=== PATIENT | female | born 1980 | race Caucasian/White ===

== ENCOUNTER 2017-02-03 00:43 | Emergency (ER) | payer MEDICAID ==
[~2017-02-03] VITALS: Ht 165.1 cm; Wt 99.5 kg
[2017-02-03 00:44] VITALS: BP 133/85
[2017-02-03] MEDS ORDERED: LIDOCAINE 1%, 20ML ONE (01:08)
[2017-02-03] MEDS ORDERED: IBUPROFEN 200 MG TABLET PO ONE (01:30)
[2017-02-03] MEDS ORDERED: OXYcodone/APAP 5/325MG TABLET PO ONE (01:30)
[2017-02-03] MEDS ORDERED: LIDOCAINE 1%, 20ML SQ ONE (01:30)
[2017-02-03] MEDS ORDERED: OXYcodone/APAP 5/325MG TABLET ONE (01:38)
[2017-02-03] MEDS ORDERED: IBUPROFEN 200 MG TABLET ONE (01:38)
== END 2017-02-03 02:05 | disposition home or self-care (01) ==
LOC: ED 02:03
DX: L05.01 Pilonidal cyst with abscess (principal); F17.200 Nicotine dependence, unspecified, uncomplicated; Z90.49 Acquired absence of other specified parts of digestive tract
CPT/HCPCS: 10080

== ENCOUNTER 2017-03-15 12:40 | Emergency (ER) | payer MEDICAID ==
[~2017-03-15] VITALS: Ht 165.1 cm; Wt 94.3 kg
[2017-03-15 12:41] VITALS: BP 122/76
== END 2017-03-15 13:15 | disposition home or self-care (01) ==
LOC: ED 13:00
DX: L55.1 Sunburn of second degree (principal); Z90.49 Acquired absence of other specified parts of digestive tract
CPT/HCPCS: 99283

== ENCOUNTER 2018-03-26 12:38 | Emergency (ER) | payer MEDICAID ==
[~2018-03-26] VITALS: Ht 165.1 cm; Wt 100.9 kg
[2018-03-26] MEDS ORDERED: DIPHENHYDRAMINE 25 MG CAPSULE PO ONE (14:00)
[2018-03-26] MEDS ORDERED: ACETAMINOPHEN 325 MG TABLET PO ONE (14:00)
[2018-03-26] MEDS ORDERED: DEXAMETHASONE 4 MG TABLET PO ONE (14:00)
[2018-03-26] MEDS ORDERED: KETOROLAC 30 MG/1 ML IM ONE (14:00)
[2018-03-26] MEDS ORDERED: METOCLOPRAMIDE 10MG TABLET PO ONE (14:00)
[2018-03-26 14:02] LABS: BASOPHILS # (AUTO) 0.01 x10^3/uL (0-0.1); BASOPHILS % (AUTO) 0 % (0-1); EOSINOPHILS # (AUTO) 0.16 x10^3/uL (0-0.4); EOSINOPHILS % (AUTO) 2 % (1-7); LYMPHOCYTES # (AUTO) 3.15 x10^3/uL (1-3.4); LYMPHOCYTES % (AUTO) 29 % (22-44); MD NO; MEAN CORPUSCULAR HEMOGLOBIN 28.5 pg (27.0-34.8); MEAN CORPUSCULAR VOLUME 86.3 fL (80-100); MEAN PLATELET VOLUME 9.3 fL (7.4-10.4); MONOCYTES # (AUTO) 0.93 x10^3/uL (0.2-0.8); MONOCYTES % (AUTO) 9 % (2-9); NEUTROPHILS # (AUTO) 6.59 x10^3/uL (1.8-6.8); NEUTROPHILS % (AUTO) 61 % (42-75); PLATELET COUNT 264 x10^3/uL (130-400); RED BLOOD COUNT 5.31 x10^6/uL (3.82-5.3); RED CELL DISTRIBUTION WIDTH 13.3 % (9.6-15.2)
[2018-03-26] MEDS ORDERED: DEXAMETHASONE 4 MG TABLET ONE (14:02)
[2018-03-26] MEDS ORDERED: ACETAMINOPHEN 325 MG TABLET ONE (14:02)
[2018-03-26] MEDS ORDERED: DIPHENHYDRAMINE 25 MG CAPSULE ONE (14:03)
[2018-03-26] MEDS ORDERED: KETOROLAC 30 MG/1 ML ONE (14:03)
[2018-03-26] MEDS ORDERED: METOCLOPRAMIDE 10MG TABLET ONE (14:04)
[2018-03-26 14:05] LABS: ANION GAP 8 mmol/L (5-15); CALCIUM 8.7 mg/dL (8.5-10.1); CHLORIDE 108 mmol/L (98-107); CREATININE 0.53 mg/dL (0.55-1.02)
[2018-03-26 15:41] VITALS: BP 113/63
== END 2018-03-26 15:48 | disposition home or self-care (01) ==
LOC: ED 14:25
DX: G44.219 Episodic tension-type headache, not intractable (principal); J32.9 Chronic sinusitis, unspecified; M54.2 Cervicalgia
CPT/HCPCS: 36415; 80048; 84703; 85025; 96372; 99284; J1885; Q0163

== ENCOUNTER 2019-07-19 12:12 | Emergency (ER) | payer MEDICAID, OTHER ==
[~2019-07-19] VITALS: Ht 167.6 cm; Wt 98.1 kg
--- NOTE | 2019-07-19 12:22 | NUR ---
PT HERE TODAY FOR LEFT FLANK PAIN THAT STARTED LAST NIGHT. RADIATES TO LEFT ABDOMEN. DENIES HAVING ABDOMINAL SURERY IN PAST. STATES INCONTINENCE FOR 1 MONTH. WAS DX WITH UTI AT [facility] 1 MONTH AGO. STATES SHE FINISHED HER ABX BUT NEVER FELT BETTER. MD AT BEDSIDE TO ASSESS PT NOW. PT RESTING ON GURNEY. CONNECTED MONITOR. TEARFUL DUE TO PAIN. AWARE OF POC.
--- NOTE | 2019-07-19 12:29 | NUR ---
requested records from [facility].
[2019-07-19] MEDS ORDERED: SODIUM CHLORIDE FLUSH 10ML SYR IVF ONE (12:30)
[2019-07-19] MEDS ORDERED: ONDANSETRON 2MG/ML, 2ML IVPush ONE (12:30)
[2019-07-19] MEDS ORDERED: HYDROmorphone 2 MG/ML, 1ML IVPush PRN (12:30)
[2019-07-19] MEDS ORDERED: ONDANSETRON 2MG/ML, 2ML ONE (12:37)
[2019-07-19] MEDS ORDERED: HYDROmorphone 1 MG/ML, 1ML VIAL ONE (12:37)
[2019-07-19 12:46] LABS: BASOPHILS # (AUTO) 0.06 x10^3/uL (0-0.1); BASOPHILS % (AUTO) 1 % (0-1); EOSINOPHILS # (AUTO) 0.22 x10^3/uL (0-0.4); EOSINOPHILS % (AUTO) 2 % (1-7); LYMPHOCYTES # (AUTO) 2.47 x10^3/uL (1-3.4); LYMPHOCYTES % (AUTO) 24 % (22-44); MD NO; MEAN CORPUSCULAR VOLUME 87.9 fL (80-100); MEAN PLATELET VOLUME 9.4 fL (7.4-10.4); MONOCYTES # (AUTO) 0.76 x10^3/uL (0.2-0.8); MONOCYTES % (AUTO) 7 % (2-9); NEUTROPHILS # (AUTO) 6.97 x10^3/uL (1.8-6.8); NEUTROPHILS % (AUTO) 67 % (42-75); PLATELET COUNT 252 x10^3/uL (130-400); RED BLOOD COUNT 4.98 x10^6/uL (3.82-5.3)
--- NOTE | 2019-07-19 12:53 | NUR ---
PT AMBULATORY WITH STEADY GAIT TO AND FROM BATHROOM. PROVIDED URINE SAMPLE, URINE COLLECTED. THIS RN ATTEMPTED PIVX2, SECOND RN ABLE TO OBTAIN PIV. PT MEDICATED PER EMAR. VSS.
[2019-07-19 12:57] LABS: ALANINE AMINOTRANSFERASE 29 U/L (12-78); ALBUMIN 3.5 g/dL (3.4-5.0); ANION GAP 5 mmol/L (5-15); CALCIUM 8.6 mg/dL (8.5-10.1); CHLORIDE 108 mmol/L (98-107); CREATININE 0.58 mg/dL (0.55-1.02)
[2019-07-19 13:01] LABS: ALKALINE PHOSPHATASE 112 U/L (45-117); BILIRUBIN,TOTAL 0.5 mg/dL (0.2-1.0); TOTAL PROTEIN 6.8 g/dL (6.4-8.2)
[2019-07-19 13:06] LABS: MICROSCOPIC NOT IND
[2019-07-19 13:10] LABS: CULTURE INDICATED? NO
--- NOTE | 2019-07-19 13:16 | NUR ---
PT STATES PAIN HAS DECREASED TO A 5/10. RESTING ON GURNEY. NADN. VSS. DENIES NEEDS AT THIS TIME. CALL LIGHT IN REACH.
--- NOTE | 2019-07-19 13:23 | NUR ---
2nd request to [facility] for records
--- NOTE | 2019-07-19 14:06 | NUR ---
PT RESTING ON EVELINE. VEE. VSS. DENIES NEEDS AT THIS TIME.
--- NOTE | 2019-07-19 14:16 | NUR ---
PT IN CT NOW.
--- NOTE | 2019-07-19 14:36 | NUR ---
3rd call to [facility] for records
--- NOTE | 2019-07-19 14:42 | NUR ---
PT BACK FROM CT. RESTING ON EVELINE. NADN. REA.
[2019-07-19 14:53] VITALS: BP 92/46
--- NOTE | 2019-07-19 14:54 | NUR ---
AT BEDSIDE TO REASSESS PT NOW. PT STATES PAIN IS A 5-6/10 AT THIS TIME.
== END 2019-07-19 15:15 | disposition home or self-care (01) ==
LOC: ED 15:05
DX: M54.5 Low back pain (principal); F17.200 Nicotine dependence, unspecified, uncomplicated; R50.9 Fever, unspecified; Z90.49 Acquired absence of other specified parts of digestive tract
CPT/HCPCS: 36415; 74177; 80053; 81003; 84703; 85025; 96374; 96375; 99284; J1170; J2405